=== PATIENT | male | born 1945 | race Caucasian/White ===

== ENCOUNTER 2020-12-12 15:31 | Emergency (ER) | payer MEDICARE ==
[~2020-12-12] VITALS: Ht 167.6 cm; Wt 72.7 kg
--- NOTE | 2020-12-12 15:50 | NUR ---
NOTIFIED BY LAB THAT PT DID NOT WANT TO SIT FOR LAB DRAW AND HAS HX OF PASSING OUT. LAB WILL DRAW PT ONCE HE IS IN A BED
[2020-12-12 17:04] LABS: EOSINOPHILS % (AUTO) 0 % (0-6); LYMPHOCYTES # (AUTO) 1.6 X10'3 (1.1-4.8); MEAN CORPUSCULAR HGB CONC 31.4 g/dL (33.0-36.5)
[2020-12-12 17:07] LABS: BASOPHILS # (AUTO) 0.6 X10'3 (0-0.2); BASOPHILS % (AUTO) 1.2 % (0-1); HEMATOCRIT 31.2 % (42.0-52.0); HEMOGLOBIN 9.8 g/dl (14.0-17.9); MEAN CORPUSCULAR HEMOGLOBIN 21.3 PG (27.0-31.0); MEAN CORPUSCULAR VOLUME 67.8 FL (78-98); MONOCYTES % (AUTO) 15.4 % (2-12); NEUTROPHILS # (AUTO) 41.4 X10'3 (1.8-7.7); NEUTROPHILS % (AUTO) 80.4 % (42-75); PLATELET COUNT 168 X10'3 (140-440); RED CELL DISTRIBUTION WIDTH 21.9 % (11.5-14.5)
[2020-12-12 17:13] LABS: ALANINE AMINOTRANSFERASE 13 U/L (12-78); ALBUMIN 3.6 G/DL (3.4-5.0); ALBUMIN/GLOBULIN RATIO 0.9 (1.1-1.5); ALKALINE PHOSPHATASE 87 IU/L (46-116); ANION GAP 12 (8-16); ASPARTATE AMINO TRANSFERASE 10 U/L (10-37); BILIRUBIN,TOTAL 0.5 MG/DL (0.1-1.0); BLOOD UREA NITROGEN 21 MG/DL (7-18); BUN/CREATININE RATIO 25.9 (5.4-32.0); CALCIUM 8.5 MG/DL (8.5-10.1); CHLORIDE 103 MMOL/L (99-107); CREATININE 0.81 MG/DL (0.60-1.10); GLUCOSE 113 MG/DL (70-104); POTASSIUM 3.6 MMOL/L (3.5-5.1); SODIUM 139 MMOL/L (135-145); TOTAL CARBON DIOXIDE 23.7 MMOL/L (24-32); TOTAL PROTEIN 7.5 G/DL (6.4-8.2); eGFR > 90 ML/MIN
[2020-12-12 17:24] LABS: WHITE BLOOD COUNT 51.5 X10'3 (4.5-11.0)
[2020-12-12 17:26] LABS: ANISOCYTOSIS 3+; MICROCYTOSIS 2+; PLATELET ESTIMATE NORMAL; TOTAL CELLS COUNTED 100
[2020-12-12 17:27] LABS: SCHISTOCYTES 1+; TEAR DROP CELLS FEW
[2020-12-12] MEDS ORDERED: ibuprofen tablet 400 MG TABLET PO ONE (17:35)
[2020-12-12 18:20] VITALS: BP 120/58
== END 2020-12-12 18:22 | disposition home or self-care (01) ==
LOC: ER 15:32
DX: S31.104A Unspecified open wound of abdominal wall, left lower quadrant without penetration into peritoneal cavity, initial encounter (principal); X58.XXXA Exposure to other specified factors, initial encounter; Y93.89 Activity, other specified; Y92.89 Other specified places as the place of occurrence of the external cause; Y99.8 Other external cause status
CPT/HCPCS: 36415; 71045; 80053; 83605; 84145; 85007; 85025; 87040; 99284

== ENCOUNTER 2022-05-20 17:23 | Observation (INO) | payer MEDICARE ==
[~2022-05-20] VITALS: Ht 170.2 cm; Wt 68.2 kg
[2022-05-20] VITALS (7 sets, daily range): BP systolic 95–118; BP diastolic 41–54
[~2022-05-20 17:23] MED LIST: ALLO300T2 PO; DOXY50CA2 PO; LEVO25TA7 PO; TRAM50TA2 PO
[2022-05-20 18:51] LABS: ALANINE AMINOTRANSFERASE 10 U/L (12-78); ALBUMIN/GLOBULIN RATIO 1.1 (1.1-1.5); ALKALINE PHOSPHATASE 39 IU/L (46-116); ANION GAP 10 (8-16); ASPARTATE AMINO TRANSFERASE 9 U/L (10-37); BLOOD UREA NITROGEN 21 MG/DL (7-18); BUN/CREATININE RATIO 19.6 (5.4-32.0); CHLORIDE 102 MMOL/L (99-107); CREATININE 1.07 MG/DL (0.60-1.10); POTASSIUM 4.2 MMOL/L (3.5-5.1); SODIUM 136 MMOL/L (135-145); TOTAL CARBON DIOXIDE 24.3 MMOL/L (24-32); TOTAL PROTEIN 7.6 G/DL (6.4-8.2); eGFR 67 ML/MIN
[2022-05-20 18:53] LABS: MEAN CORPUSCULAR HGB CONC 32.1 g/dL (33.0-36.5); MEAN CORPUSCULAR VOLUME 78.1 FL (78-98); MEAN PLATELET VOLUME 11.3 FL (7.4-10.4); PLATELET COUNT 209 X10'3 (140-440); RED BLOOD COUNT 2.74 X10'6 (4.70-6.10); RED CELL DISTRIBUTION WIDTH 22.5 % (11.5-14.5)
[2022-05-20 19:03] LABS: GLUCOSE 101 MG/DL (70-104)
[2022-05-20 19:14] LABS: HEMATOCRIT 21.4 % (42.0-52.0); HEMOGLOBIN 6.9 g/dl (14.0-17.9)
[2022-05-20] MEDS ORDERED: acetaminophen 325mg tablet PO PRN (20:50)
[2022-05-20] MEDS ORDERED: mag hydrox/Alum hydrox/simeth 30ml oral suspension PO PRN (20:50)
[2022-05-20] MEDS: normal saline 1000ml 1,000 ML IV SCH (20:50)
[2022-05-20] MEDS ORDERED: ondansetron/PF 4mg/2ml inj IV PRN (20:50)
[2022-05-20] MEDS ORDERED: magnesium hydroxide 30ml (MOM) UD suspension PO PRN (20:50)
[2022-05-20 21:18] LABS: ABSOLUTE RETICS # < 6000 /CUMM (23000-93000)
[2022-05-20 21:52] LABS: ACANTHOCYTES FEW; ANISOCYTOSIS 3+; ELLIPTOCYTES 3+; MICROCYTOSIS 1+; NUCLEATED RED BLOOD CELLS 2 /100WBC (0-0); PLATELET ESTIMATE NORMAL; POLYCHROMASIA 1+; SCHISTOCYTES 2+; TEAR DROP CELLS 1+; TOTAL CELLS COUNTED 100
[2022-05-20 21:53] LABS: GIANT PLATELET FEW; LARGE PLATELETS FEW
--- NOTE | 2022-05-20 23:13 | NUR ---
Blood transfusion started around 2100, 2 untis of PRBC's, first unit eneded around 2245 and second unit was started shortly after. Unable to document on end time of second unit adeola pt was brought up to the ortho floor.
--- NOTE | 2022-05-20 23:24 | NUR ---
Patient in room ED 4. I have received report from APURVA Cage and had the opportunity to ask questions and assume patient care.
[2022-05-21] MEDS: normal saline 1000ml 1,000 ML IV SCH (00:49)
[2022-05-21 00:52] VITALS: BP 100/46
[2022-05-21 06:00] VITALS: BP 95/58
--- NOTE | 2022-05-21 06:20 | NUR ---
Problems reprioritized. Patient report given, questions answered & plan of care reviewed with APURVA Villarreal.
--- NOTE | 2022-05-21 06:24 | NUR ---
Problems reprioritized. Patient report given, questions answered & plan of care reviewed with ASAD Villarreal.
--- NOTE | 2022-05-21 06:38 | NUR ---
Patient in room ORTHO 4022. I have received report from APURVA Horan and had the opportunity to ask questions and assume patient care.
[2022-05-21] MEDS ORDERED: levoTHYROXINE 25mcg tablet PO SCH (07:00)
[2022-05-21 07:55] LABS: ALANINE AMINOTRANSFERASE 7 U/L (12-78); ALBUMIN 3.2 G/DL (3.4-5.0); ALKALINE PHOSPHATASE 37 IU/L (46-116); ANION GAP 8 (8-16); ASPARTATE AMINO TRANSFERASE 8 U/L (10-37); BILIRUBIN,TOTAL 1.3 MG/DL (0.1-1.0); BLOOD UREA NITROGEN 21 MG/DL (7-18); BUN/CREATININE RATIO 21.6 (5.4-32.0); CALCIUM 7.6 MG/DL (8.5-10.1); CHLORIDE 107 MMOL/L (99-107); CREATININE 0.97 MG/DL (0.60-1.10); POTASSIUM 4.5 MMOL/L (3.5-5.1); SODIUM 139 MMOL/L (135-145); TOTAL CARBON DIOXIDE 24.5 MMOL/L (24-32); TOTAL PROTEIN 6.4 G/DL (6.4-8.2); eGFR 75 ML/MIN
[2022-05-21] MEDS ORDERED: docusate sod 100mg capsule PO SCH (08:00)
[2022-05-21 08:03] LABS: GLUCOSE 97 MG/DL (70-104)
[2022-05-21] MEDS ORDERED: allopurinol 300 MG tablet PO SCH (08:30)
[2022-05-21 10:00] VITALS: BP 94/48
[2022-05-21 10:29] LABS: MEAN CORPUSCULAR HEMOGLOBIN 25.9 PG (27.0-31.0); MONOCYTES # (AUTO) 0.4 X10'3 (0-0.9); NEUTROPHILS # (AUTO) 1.4 X10'3 (1.8-7.7); RED BLOOD COUNT 2.63 X10'6 (4.70-6.10); WHITE BLOOD COUNT 2.2 X10'3 (4.5-11.0)
[2022-05-21 10:33] LABS: BASOPHILS % (AUTO) 1.1 % (0-1); EOSINOPHILS % (AUTO) 0.8 % (0-6); LYMPHOCYTES # (AUTO) 0.4 X10'3 (1.1-4.8); LYMPHOCYTES % (AUTO) 16.1 % (21-51); MEAN CORPUSCULAR HGB CONC 32.9 g/dL (33.0-36.5); MEAN CORPUSCULAR VOLUME 78.9 FL (78-98); MEAN PLATELET VOLUME 10.1 FL (7.4-10.4); MONOCYTES % (AUTO) 18.6 % (2-12); NEUTROPHILS % (AUTO) 63.4 % (42-75); RED CELL DISTRIBUTION WIDTH 20.7 % (11.5-14.5)
[2022-05-21 10:48] LABS: HEMATOCRIT 20.7 % (42.0-52.0); HEMOGLOBIN 6.8 g/dl (14.0-17.9)
[2022-05-21 10:49] LABS: PLATELET COUNT 149 X10'3 (140-440)
[2022-05-21 10:57] LABS: PLATELET ESTIMATE NORMAL
[2022-05-21 10:58] LABS: ANISOCYTOSIS 3+; ELLIPTOCYTES 3+; MICROCYTOSIS 1+; TEAR DROP CELLS 2+
[2022-05-21 11:00] LABS: ACANTHOCYTES FEW
--- NOTE | 2022-05-21 11:00 | NUR ---
PAGER ID: [phone] MESSAGE: Patient Odessa Pickett, in room 4022A has a hemaglobin of 6.8 and hematocrit of 20.7. Cherelle [id number]
[2022-05-21 13:45] LABS: HEMOGLOBIN 7.7 g/dl (14.0-17.9); MEAN PLATELET VOLUME 11.3 FL (7.4-10.4); WHITE BLOOD COUNT 2.6 X10'3 (4.5-11.0)
[2022-05-21 13:47] LABS: HEMATOCRIT 22.9 % (42.0-52.0); MEAN CORPUSCULAR HGB CONC 33.6 g/dL (33.0-36.5); MEAN CORPUSCULAR VOLUME 77.5 FL (78-98); PLATELET COUNT 169 X10'3 (140-440); RED BLOOD COUNT 2.96 X10'6 (4.70-6.10)
[2022-05-21 14:19] LABS: ACANTHOCYTES 1+; ANISOCYTOSIS 3+; ELLIPTOCYTES 3+; MICROCYTOSIS 1+; NUCLEATED RED BLOOD CELLS 2 /100WBC (0-0); PLATELET ESTIMATE NORMAL; TEAR DROP CELLS 2+; TOTAL CELLS COUNTED 100
[2022-05-21 14:20] LABS: LARGE PLATELETS FEW; POLYCHROMASIA 1+
--- NOTE | 2022-05-21 14:36 | NUR ---
PAGER ID: [phone] MESSAGE: Dr. Torres, hemaglobin for Odessa Pickett in room 4022A was 7.7 and hematocrit was 22.9. Cherelle [id number]
--- NOTE | 2022-05-21 16:09 | NUR ---
PAGER ID: [phone] MESSAGE: Dr. Torres just want to confirm if patient, Odessa Pickett, 4022A is ok to discharge, with hemoglobin of 7.7 and hematocrit of 22.9. Cherelle [id number]
[2022-05-21 18:00] VITALS: BP 105/50
--- NOTE | 2022-05-21 18:00 | NUR ---
I have reviewed and agree with all interventions, assessments performed, and documentation by Cherelle Dorsey LVN.
--- NOTE | 2022-05-21 18:10 | NUR ---
Patient in room ORTHO 4022. I have received report from ASAD DELANEY and had the opportunity to ask questions and assume patient care.
--- NOTE | 2022-05-21 18:16 | NUR ---
Problems reprioritized. Patient report given, questions answered & plan of care reviewed with APURVA Horan.
--- NOTE | 2022-05-21 19:00 | NUR ---
PT. DISCHARGED HOME. HIS FRIEND CAME AND PICK HIM UP VIA CAR.
== END 2022-05-21 18:50 | disposition home or self-care (01) ==
LOC: ER 17:24 → INTOOBSV 20:50 → ED HOLD 20:50 → ORTHO 4S 23:35
PROVIDERS: ADMIT Internal Medicine; ATTEND Internal Medicine
DX: D64.9 Anemia, unspecified (principal); C93.10 Chronic myelomonocytic leukemia not having achieved remission; Z79.899 Other long term (current) drug therapy; Z87.891 Personal history of nicotine dependence
CPT/HCPCS: 36415; 36430; 80053; 84443; 85007; 85008; 85025; 85045; 86644; 86885; 86900; 86901; 86920; 86945; 87081; 96360; 96361; 99284; G0378; J7030; J7050; P9016; 99285

== ENCOUNTER 2022-06-07 18:51 | Emergency (ER) | payer MEDICARE ==
[~2022-06-07] VITALS: Ht 170.2 cm; Wt 66.8 kg
[~2022-06-07 18:51] MED LIST changes: -DOXY50CA2 PO
[2022-06-07 20:15] LABS: MEAN CORPUSCULAR HEMOGLOBIN 25.7 PG (27.0-31.0); MEAN CORPUSCULAR HGB CONC 32.6 g/dL (33.0-36.5); MEAN CORPUSCULAR VOLUME 78.7 FL (78-98); MEAN PLATELET VOLUME 10.6 FL (7.4-10.4); PLATELET COUNT 231 X10'3 (140-440); RED BLOOD COUNT 2.43 X10'6 (4.70-6.10); RED CELL DISTRIBUTION WIDTH 20.3 % (11.5-14.5); WHITE BLOOD COUNT 2.7 X10'3 (4.5-11.0)
[2022-06-07 20:20] LABS: HEMATOCRIT 19.2 % (42.0-52.0); HEMOGLOBIN 6.3 g/dl (14.0-17.9)
[2022-06-07 20:25] LABS: ALANINE AMINOTRANSFERASE 11 U/L (12-78); ALBUMIN 3.4 G/DL (3.4-5.0); ALBUMIN/GLOBULIN RATIO 0.9 (1.1-1.5); ALKALINE PHOSPHATASE 47 IU/L (46-116); ANION GAP 9 (8-16); ASPARTATE AMINO TRANSFERASE 11 U/L (10-37); BILIRUBIN,TOTAL 0.9 MG/DL (0.1-1.0); BLOOD UREA NITROGEN 24 MG/DL (7-18); BUN/CREATININE RATIO 22.2 (5.4-32.0); CALCIUM 8.2 MG/DL (8.5-10.1); CHLORIDE 104 MMOL/L (99-107); CREATININE 1.08 MG/DL (0.60-1.10); POTASSIUM 4.2 MMOL/L (3.5-5.1); SODIUM 136 MMOL/L (135-145); TOTAL CARBON DIOXIDE 23.4 MMOL/L (24-32); TOTAL PROTEIN 7.4 G/DL (6.4-8.2); eGFR 67 ML/MIN
[2022-06-07 20:29] LABS: GLUCOSE 117 MG/DL (70-104)
[2022-06-07 21:26] LABS: NUCLEATED RED BLOOD CELLS 3 /100WBC (0-0); TOTAL CELLS COUNTED 100
[2022-06-07 21:27] LABS: ANISOCYTOSIS 3+; MICROCYTOSIS 1+; PLATELET ESTIMATE NORMAL; POLYCHROMASIA 1+
[2022-06-07 21:39] LABS: ACANTHOCYTES 1+; ELLIPTOCYTES 3+; GIANT PLATELET FEW; TEAR DROP CELLS 2+
[2022-06-07 21:40] LABS: LARGE PLATELETS FEW
[2022-06-07 23:16] VITALS: BP 105/44
[2022-06-07 23:31] VITALS: BP 103/42
[2022-06-08] VITALS (7 sets, daily range): BP systolic 97–127; BP diastolic 46–90
[2022-06-08 03:09] LABS: MEAN CORPUSCULAR HEMOGLOBIN 26.9 PG (27.0-31.0); PLATELET COUNT 150 X10'3 (140-440)
[2022-06-08 03:11] LABS: MEAN CORPUSCULAR HGB CONC 33.4 g/dL (33.0-36.5); MEAN CORPUSCULAR VOLUME 80.5 FL (78-98); MEAN PLATELET VOLUME 10.2 FL (7.4-10.4); RED BLOOD COUNT 2.37 X10'6 (4.70-6.10); RED CELL DISTRIBUTION WIDTH 20.4 % (11.5-14.5); WHITE BLOOD COUNT 2.2 X10'3 (4.5-11.0)
[2022-06-08 03:20] LABS: HEMOGLOBIN 6.4 g/dl (14.0-17.9)
[2022-06-08 03:21] LABS: HEMATOCRIT 19.1 % (42.0-52.0)
[2022-06-08 10:27] LABS: HEMATOCRIT 22.2 % (42.0-52.0); HEMOGLOBIN 7.4 g/dl (14.0-17.9); MEAN CORPUSCULAR HEMOGLOBIN 27.1 PG (27.0-31.0); MEAN CORPUSCULAR HGB CONC 33.5 g/dL (33.0-36.5); MEAN CORPUSCULAR VOLUME 80.9 FL (78-98); MEAN PLATELET VOLUME 10.4 FL (7.4-10.4); PLATELET COUNT 186 X10'3 (140-440); RED BLOOD COUNT 2.75 X10'6 (4.70-6.10); RED CELL DISTRIBUTION WIDTH 18.9 % (11.5-14.5); WHITE BLOOD COUNT 2.3 X10'3 (4.5-11.0)
== END 2022-06-08 10:03 | disposition home or self-care (01) ==
LOC: ER 18:53
DX: D64.9 Anemia, unspecified (principal); Z86.2 Personal history of diseases of the blood and blood-forming organs and certain disorders involving the immune mechanism; Z98.890 Other specified postprocedural states; Z72.89 Other problems related to lifestyle; Z88.5 Allergy status to narcotic agent; Z79.899 Other long term (current) drug therapy
CPT/HCPCS: 36415; 36430; 80053; 82948; 85007; 85025; 85027; 86885; 86900; 86901; 86920; 99285; J7030; J7040; P9016